=== PATIENT | male | born 1980 ===

== ENCOUNTER 2017-10-26 00:30 | Emergency (ER) | payer MEDICAID ==
[~2017-10-26] VITALS: Ht 180.3 cm; Wt 70.5 kg
[2017-10-26] MEDS ORDERED: normal saline 1000ml 1,000 ML IV ONE ×3 (01:15→02:45)
[2017-10-26 01:31] LABS: BASOPHILS % (AUTO) 0.6 % (0-1); EOSINOPHILS # (AUTO) 0.1 X10'3 (0-0.9); EOSINOPHILS % (AUTO) 1.6 % (0-6); HEMATOCRIT 40.7 % (42.0-52.0); HEMOGLOBIN 13.8 g/dl (14.0-17.9); LYMPHOCYTES # (AUTO) 1.4 X10'3 (1.1-4.8); LYMPHOCYTES % (AUTO) 18.6 % (21-51); MEAN CORPUSCULAR HEMOGLOBIN 30.8 PG (27.0-31.0); MEAN CORPUSCULAR HGB CONC 33.8 % (33.0-36.5); MEAN CORPUSCULAR VOLUME 91.4 FL (78-98); MEAN PLATELET VOLUME 7.7 FL (7.4-10.4); MONOCYTES # (AUTO) 0.5 X10'3 (0-0.9); MONOCYTES % (AUTO) 6.2 % (2-12); NEUTROPHILS # (AUTO) 5.8 X10'3 (1.8-7.7); PLATELET COUNT 258 X10'3 (140-440); RED BLOOD COUNT 4.46 X10'6 (4.70-6.10); RED CELL DISTRIBUTION WIDTH 12.5 % (11.5-14.5); WHITE BLOOD COUNT 7.8 X10'3 (4.5-11.0)
[2017-10-26 01:34] LABS: PARTIAL THROMBOPLASTIN TIME 22 SECONDS (22-32); PROTHROMBIN TIME 10.1 SECONDS (9.0-12.0)
[2017-10-26 01:37] LABS: ALANINE AMINOTRANSFERASE 27 U/L (12-78); ALBUMIN 4.1 G/DL (3.4-5.0); ALBUMIN/GLOBULIN RATIO 1.2 (1.1-1.5); ALKALINE PHOSPHATASE 97 IU/L (46-116); ANION GAP 9 (8-16); ASPARTATE AMINO TRANSFERASE 24 U/L (10-37); BILIRUBIN,TOTAL 0.3 MG/DL (0.1-1.0); BLOOD UREA NITROGEN 15 MG/DL (7-18); BUN/CREATININE RATIO 12.3 (5.4-32.0); CALCIUM 8.9 MG/DL (8.5-10.1); CHLORIDE 108 MMOL/L (99-107); CREATININE 1.22 MG/DL (0.60-1.10); GLUCOSE 122 MG/DL (70-104); POTASSIUM 3.2 MMOL/L (3.5-5.1); SODIUM 144 MMOL/L (135-145); TOTAL CARBON DIOXIDE 27.3 MMOL/L (24-32); TOTAL PROTEIN 7.6 G/DL (6.4-8.2); eGFR 66 ML/MIN
[2017-10-26] MEDS ORDERED: NO HOME MEDS (01:45)
[2017-10-26] MEDS ORDERED: AMOX500C2 PO (03:27)
[2017-10-26 03:49] VITALS: BP 170/92
== END 2017-10-26 03:51 | disposition home or self-care (01) ==
LOC: ER 00:30
DX: F19.10 Other psychoactive substance abuse, uncomplicated (principal); R40.20 Unspecified coma; R42 Dizziness and giddiness; R06.81 Apnea, not elsewhere classified; F15.90 Other stimulant use, unspecified, uncomplicated; Z79.899 Other long term (current) drug therapy
CPT/HCPCS: 36415; 80053; 83605; 84145; 85025; 85610; 85730; 93005; 96360; 99285; J7030

== ENCOUNTER 2018-06-17 09:34 | Emergency (ER) | payer MEDICAID ==
[~2018-06-17] VITALS: Ht 180.3 cm; Wt 75.0 kg
[~2018-06-17 09:34] MED LIST: NO HOME MEDS
[2018-06-17] MEDS ORDERED: pilocarpine 2% ophthalmic drops 15ml EACHEYE ONE (10:00)
[2018-06-17] MEDS ORDERED: proparacaine 0.5% ophthalmic drops 15ml EACHEYE ONE (10:20)
[2018-06-17] MEDS ORDERED: ERYT1OIN6 EACHEYE (10:45)
[2018-06-17] MEDS ORDERED: ERYT1OIN6 RIGHTEYE (10:56)
[2018-06-17 11:24] VITALS: BP 139/100
[2018-06-18] MEDS ORDERED: POLOS EACHEYE (19:05)
== END 2018-06-17 11:26 | disposition home or self-care (01) ==
LOC: ER 09:35
DX: S05.01XA Injury of conjunctiva and corneal abrasion without foreign body, right eye, initial encounter (principal); F17.200 Nicotine dependence, unspecified, uncomplicated; F12.90 Cannabis use, unspecified, uncomplicated; F15.90 Other stimulant use, unspecified, uncomplicated; W22.8XXA Striking against or struck by other objects, initial encounter; Y93.89 Activity, other specified; Y92.89 Other specified places as the place of occurrence of the external cause; Y99.8 Other external cause status
CPT/HCPCS: 99283

== ENCOUNTER 2018-06-18 17:11 | Emergency (ER) | payer MEDICAID ==
[~2018-06-18] VITALS: Ht 177.8 cm; Wt 77.3 kg
[~2018-06-18 17:11] MED LIST changes: +ERYT1OIN6 EACHEYE; +ERYT1OIN6 RIGHTEYE
[2018-06-18 17:12] VITALS: BP 143/100
[2018-06-18] MEDS ORDERED: POLOS EACHEYE (19:05)
[2018-06-18] MEDS ORDERED: moxifloxacin 0.5% ophthalmic drops 3ml RIGHTEYE SCH (20:10)
[2018-06-18] MEDS ORDERED: polymyxin B sulf/tmp ophth drops 10ml RIGHTEYE SCH (20:10)
[2018-06-18] MEDS ORDERED: prednisoLONE acetate 1% ophth susp 5ml RIGHTEYE SCH (20:10)
[2018-06-18] MEDS ORDERED: cyclopentolate 2% ophthalmic sol 5ml RIGHTEYE ONE (20:10)
[2018-06-18] MEDS ORDERED: HYDROcodone/acetaminophen 5mg/325mg tablet PO ONE (21:00)
--- NOTE | 2018-06-18 21:04 | NUR ---
gave the moxifloxin drop q 5mins x [address] Felix, per Kenneth
== END 2018-06-18 21:29 | disposition home or self-care (01) ==
LOC: ER 17:11
DX: S05.01XA Injury of conjunctiva and corneal abrasion without foreign body, right eye, initial encounter (principal); H20.9 Unspecified iridocyclitis; F12.90 Cannabis use, unspecified, uncomplicated; F15.90 Other stimulant use, unspecified, uncomplicated; Z79.899 Other long term (current) drug therapy; X58.XXXA Exposure to other specified factors, initial encounter; Y93.89 Activity, other specified; Y92.89 Other specified places as the place of occurrence of the external cause; Y99.9 Unspecified external cause status
CPT/HCPCS: 99285

== ENCOUNTER 2020-07-15 18:01 | Emergency (ER) | payer MEDICAID ==
[~2020-07-15] VITALS: Ht 180.3 cm; Wt 95.5 kg
[~2020-07-15 18:01] MED LIST changes: -ERYT1OIN6 EACHEYE; -ERYT1OIN6 RIGHTEYE
[2020-07-15 18:05] VITALS: BP 148/88
[2020-07-15] MEDS ORDERED: acetaminophen 325mg tablet PO ONE (19:00)
== END 2020-07-15 19:35 | disposition home or self-care (01) ==
LOC: ER 18:01
DX: S99.911A Unspecified injury of right ankle, initial encounter (principal); M79.671 Pain in right foot; F12.90 Cannabis use, unspecified, uncomplicated; F15.90 Other stimulant use, unspecified, uncomplicated; Z72.89 Other problems related to lifestyle; X58.XXXA Exposure to other specified factors, initial encounter; Y93.89 Activity, other specified; Y92.89 Other specified places as the place of occurrence of the external cause; Y99.8 Other external cause status
CPT/HCPCS: 73610; 73630; 99284

== ENCOUNTER 2022-11-14 20:27 | Emergency (ER) | payer MEDICAID ==
[~2022-11-14] VITALS: Ht 177.8 cm; Wt 81.8 kg
[2022-11-14 21:15] VITALS: BP 122/78; PULSE 101; RESP 18; TEMP 98.5; O2SAT 98
[2022-11-14] MEDS ORDERED: SULF1TAB49 PO (22:23)
[2022-11-14] MEDS ORDERED: ondansetron 4mg rapidly disintigrating tab PO ONE (22:25)
[2022-11-14] MEDS ORDERED: sulfamethoxazole/trimethoprim DS (800/160mg) tablet PO ONE (22:25)
== END 2022-11-14 22:48 | disposition home or self-care (01) ==
LOC: ER 20:29
DX: L00 Staphylococcal scalded skin syndrome (principal); F12.10 Cannabis abuse, uncomplicated; F15.10 Other stimulant abuse, uncomplicated
CPT/HCPCS: 99283